=== PATIENT | female | born 2000 | race Hispanic/Latino ===

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

== ENCOUNTER 2022-05-18 12:04 | Emergency (ER) | payer BC, SELFPAY ==
[2022-05-18] MEDS ORDERED: NA CHLORIDE 0.9% 1,000 ML ONE (14:30)
[2022-05-18 14:38] LABS: Urine Blood Negative (Negative); Urine Glucose Negative (Negative); Urine Protein Negative (Negative)
[2022-05-18 14:49] LABS: Absolute Lymphocytes (CBC) 1.9 K/uL (0.7-4.9); Hematocrit 29.6 % (36.0-45.0); Lymphocytes % 25.8 % (15.3-44.8); MCV 76.7 fL (80-100); MPV 9.3 fL (7.6-11.3); RBC Red Blood Cell Count 3.86 M/uL (3.86-4.86)
[2022-05-18 15:15] LABS: Albumin 3.6 g/dL (3.4-5.0); Bilirubin Total 0.6 mg/dL (0.2-1.0); Potassium 3.6 mmol/L (3.5-5.1); Protein, Total 7.4 g/dL (6.4-8.2)
--- NOTE | 2022-05-18 16:28 | RAD REPORT ---
EXAM DESCRIPTION: CT - Abdomen Pelvis W Contrast - 05/18/2022 4:14 pm CLINICAL HISTORY: Abdominal pain COMPARISON: 2016 TECHNIQUE: Computed axial tomography of the abdomen pelvis was obtained. 100 cc Isovue-300 was admin istered intravenously. Oral contrast was not requested which limits evaluation of bowel and appendix All CT scans are performed using dose optimization technique as appropriate and may include automated exposure control or mA/KV adjustment according to patient size. FINDINGS: The liver, spleen, pancreas, adrenal and kidneys appear unremarkable. There is no evidence of diverticulitis. A 2 centimeter right ovarian cyst without significant free fluid Retroverted uterus. IUD in place IMPRESSION: 2 centimeter right ovarian cyst without significant free fluid
--- NOTE | 2022-05-18 16:51 | ER ---
Nurse's Notes [facility] Name: Bertha Wade Age: 22 yrs Sex: Female : 2000 Arrival Date: 05/18/2022 Time: 12:07 Bed 7 Private MD: Diagnosis: UTI/ Urinary tract infection, site not specified;Lower abdominal pain, unspecified;Other ovarian cysts Presentation: 05/18 12:39 Chief complaint: Patient states: ABD pain and lower back pain began yesterday with vg1 diarrhea and nausea, stated "when I feel like i have to pee it feels full but I only pee a little bit" denies burning upon urination or blood in urine. Also stated needs a covid test to return back to work. Coronavirus screen: Vaccine status: Patient reports receiving the 2nd dose of the covid vaccine. Client denies travel out of the [place] in the last 14 days. Ebola Screen: Patient denies exposure to infectious person. Patient denies travel to an Ebola-affected area in the 21 days before illness onset. Initial Sepsis Screen: Does the patient meet any 2 criteria? No. Patient's initial sepsis screen is negative. Does the patient have a suspected source of infection? No. Patient's initial sepsis screen is negative. Risk Assessment: Do you want to hurt yourself or someone else? Patient reports no desire to harm self or others. Onset of symptoms was May 17, 2022. 12:39 Method Of Arrival: Ambulatory vg1 12:39 Acuity: JAKOB 3 vg1 Triage Assessment: 12:41 General: Appears uncomfortable, Behavior is calm, cooperative. Pain: Complains of pain vg1 in back, right lower quadrant and left lower quadrant Pain currently is 5 out of 10 on a pain scale. GI: Abdomen is flat, Reports lower abdominal pain, diarrhea, nausea. 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 - Social history:: Smoking status: Reported history of juuling and/or vaping. Screenin:50 Abuse screen: Denies threats or abuse. Denies injuries from another. Nutritional bp screening: No deficits noted. Tuberculosis screening: No symptoms or risk factors identified. Fall Risk None identified. Assessment: 13:00 General: SEE TRIAGE NOTE. bp 14:51 Reassessment: No changes from previously documented assessment. Patient and/or family bp updated on plan of care and expected duration. Pain level reassessed. CT PENDING. 15:47 Reassessment: No changes from previously documented assessment. Patient and/or family bp updated on plan of care and expected duration. Pain level reassessed. 16:04 Reassessment: PT TO CT. bp Vital Signs: 12:39 BP 114 / 71; Pulse 73; Resp 16; Temp 98.3; Pulse Ox 100% ; Weight 49.9 kg; Height 5 ft. vg1 1 in. (154.94 cm); Pain 5/10; 14:30 BP 111 / 78; Pulse 71; Resp 16; Pulse Ox 100% ; bp 15:22 BP 111 / 71; Pulse 68; Resp 18; Pulse Ox 100% on R/A; ph 16:20 BP 104 / 76; Pulse 72; Resp 18; Pulse Ox 100% on R/A; ph 17:24 BP 110 / 68; Pulse 70; Resp 18; Temp 98.0; Pulse Ox 99% on R/A; ph 12:39 Body Mass Index 20.78 (49.90 kg, 154.94 cm) vg1 ED Course: 12:07 Patient arrived in ED. rg4 12:25 Macho Reyes MD is Attending Physician. kdr 12:41 Triage completed. vg1 12:41 Arm band placed on. vg1 13:56 Karie Voss, SUDHAKAR is Primary Nurse. ph 14:30 Inserted saline lock: 20 gauge in right antecubital area, using aseptic technique. bp Blood collected. 14:50 Patient has correct armband on for positive identification. Bed in low position. Call bp light in reach. Side rails up X2. Adult w/ patient. 16:15 CT Abd/Pelvis - IV Contrast Only In Process Unspecified. EDMS 17:21 No provider procedures requiring assistance completed. IV discontinued, intact, ph bleeding controlled, No redness/swelling at site. Pressure dressing applied. Administered Medications: 14:30 Drug: NS 0.9% 1000 ml Route: IV; Rate: 1 bolus; Site: right antecubital; bp 16:55 Follow up: Response: No adverse reaction; IV Status: Completed infusion; IV Intake: ph 1000ml 17:11 Drug: Bactrim (trimethoprim-sulfamethoxazole) (160 mg-800 mg (DS) 1 tablet Route: PO; ph 17:20 Follow up: Response: No adverse reaction ph Medication: 15:23 VIS not applicable for this client. ph Intake: 16:55 IV: 1000ml; Total: 1000ml. ph Outcome: 16:50 Discharge ordered by . kdr 17:21 Discharged to home ambulatory, with significant other. ph 17:21 Condition: good 17:21 Discharge instructions given to patient, Instructed on discharge instructions, follow up and referral plans. medication usage, Demonstrated understanding of instructions, follow-up care, medications, Prescriptions given X 2. 17:25 Patient left the ED. ph Signatures: Dispatcher [employer] EDMacho St MD MD kdr Hall, Patricia RN RN Janell Hylton 4 Ethan Call RN RN Jordana Hylton RN RN vg1
--- NOTE | 2022-05-18 16:51 | EDPHYS ---
Physician Documentation [facility] Name: Bertha Wade Age: 22 yrs Sex: Female : 2000 Arrival Date: 05/18/2022 Time: 12:07 Bed 7 Private MD: ED Physician Macho Reyes HPI: 05/18 17:36 This 22 yrs old Female presents to ER via Ambulatory with complaints of kdr Abdominal Pain, Low Back Pain. 17:36 Patient states that she started to have mild lower abdominal pain and left flank pain kdr yesterday. It has persisted since then. It is slightly worse but not significantly worse today. She has had similar symptoms before though has been many years. She has some nausea and diarrhea. The patient is nontoxic-appearing and does not require immediate intervention.. Onset: The symptoms/episode began/occurred yesterday. Severity of symptoms: At their worst the symptoms were mild moderate just prior to arrival, in the emergency department the symptoms are unchanged. The patient has not experienced similar symptoms in the past. The patient has not recently seen a physician. Patient states that she is concerned since when she was a child she had a significant urinary tract infection that nearly resulted in her having a nephrectomy. 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 - Social history:: Smoking status: Reported history of juuling and/or vaping. ROS: 17:36 Constitutional: Negative for fever, chills, and weight loss, Eyes: Negative for injury, kdr pain, redness, and discharge, ENT: Negative for injury, pain, and discharge, Neck: Negative for injury, pain, and swelling, Cardiovascular: Negative for chest pain, palpitations, and edema, Respiratory: Negative for shortness of breath, cough, wheezing, and pleuritic chest pain, Back: Negative for injury and pain, : Negative for injury, bleeding, discharge, and swelling, MS/Extremity: Negative for injury and deformity, Skin: Negative for injury, rash, and discoloration, Neuro: Negative for headache, weakness, numbness, tingling, and seizure activity. Psych: Negative for depression, anxiety, suicide ideation, homicidal ideation, and hallucinations, Allergy/Immunology: Negative for hives, rash, and allergies, Endocrine: Negative for neck swelling, polydipsia, polyuria, polyphagia, and marked weight changes, Hematologic/Lymphatic: Negative for swollen nodes, abnormal bleeding, and unusual bruising. 17:36 Abdomen/GI: Positive for abdominal pain, nausea and vomiting, Negative for constipation, abdominal cramps, abdominal distension. Exam: 17:36 Constitutional: This is a well developed, well nourished patient who is awake, alert, kdr and in no acute distress. Head/Face: Normocephalic, atraumatic. Eyes: Pupils equal round and reactive to light, extra-ocular motions intact. Lids and lashes normal. Conjunctiva and sclera are non-icteric and not injected. Cornea within normal limits. Periorbital areas with no swelling, redness, or edema. Neck: Trachea midline, no thyromegaly or masses palpated, and no cervical lymphadenopathy. Supple, full range of motion without nuchal rigidity, or vertebral point tenderness. No Meningismus. Chest/axilla: Normal chest wall appearance and motion. Nontender with no deformity. No lesions are appreciated. Cardiovascular: Regular rate and rhythm with a normal S1 and S2. No gallops, murmurs, or rubs. Normal PMI, no JVD. No pulse deficits. Respiratory: Lungs have equal breath sounds bilaterally, clear to auscultation and percussion. No rales, rhonchi or wheezes noted. No increased work of breathing, no retractions or nasal flaring. Back: No spinal tenderness. No costovertebral tenderness. Full range of motion. Skin: Warm, dry with normal turgor. Normal color with no rashes, no lesions, and no evidence of cellulitis. MS/ Extremity: Pulses equal, no cyanosis. Neurovascular intact. Full, normal range of motion. Neuro: Awake and alert, GCS 15, oriented to person, place, time, and situation. Cranial nerves II-XII grossly intact. Motor strength 5/5 in all extremities. Sensory grossly intact. Cerebellar exam normal. Normal gait. Psych: Awake, alert, with orientation to person, place and time. Behavior, mood, and affect are within normal limits. 17:36 Abdomen/GI: Inspection: abdomen appears normal, obese Bowel sounds: diminished, in all quadrants, Palpation: soft, mild abdominal tenderness, in the suprapubic area, right lower quadrant and left lower quadrant. Vital Signs: 12:39 BP 114 / 71; Pulse 73; Resp 16; Temp 98.3; Pulse Ox 100% ; Weight 49.9 kg; Height 5 ft. vg1 1 in. (154.94 cm); Pain 5/10; 14:30 BP 111 / 78; Pulse 71; Resp 16; Pulse Ox 100% ; bp 15:22 BP 111 / 71; Pulse 68; Resp 18; Pulse Ox 100% on R/A; ph 16:20 BP 104 / 76; Pulse 72; Resp 18; Pulse Ox 100% on R/A; ph 17:24 BP 110 / 68; Pulse 70; Resp 18; Temp 98.0; Pulse Ox 99% on R/A; ph 12:39 Body Mass Index 20.78 (49.90 kg, 154.94 cm) vg1 MDM: 16:50 Patient medically screened. kdr 17:36 Data reviewed: vital signs, nurses notes, lab test result(s), radiologic studies. kdr Counseling: I had a detailed discussion with the patient and/or guardian regarding: the historical points, exam findings, and any diagnostic results supporting the discharge/admit diagnosis, lab results, radiology results, the need for outpatient follow up. 05/18 14:12 Order name: CBC with Diff; Complete Time: 15:45 kdr 05/18 14:12 Order name: CMP; Complete Time: 15:45 kdr 05/18 14:12 Order name: Lipase; Complete Time: 15:45 kdr 05/18 14:39 Order name: Urine Dipstick-Ancillary; Complete Time: 15:45 EDMS 05/18 16:49 Order name: COVID-19 SARS RT PCR (Document "Date of Onset" if Symptomatic) jl7 05/18 14:12 Order name: CT Abd/Pelvis - IV Contrast Only; Complete Time: 16:39 kdr 05/18 14:12 Order name: IV Saline Lock; Complete Time: 14:50 kdr 05/18 14:12 Order name: Labs collected and sent; Complete Time: 14:50 kdr Administered Medications: 14:30 Drug: NS 0.9% 1000 ml Route: IV; Rate: 1 bolus; Site: right antecubital; bp 16:55 Follow up: Response: No adverse reaction; IV Status: Completed infusion; IV Intake: ph 1000ml 17:11 Drug: Bactrim (trimethoprim-sulfamethoxazole) (160 mg-800 mg (DS) 1 tablet Route: PO; ph 17:20 Follow up: Response: No adverse reaction ph Disposition Summary: 05/18/22 16:50 Discharge Ordered Location: Home kdr Problem: new kdr Symptoms: have improved kdr Condition: Stable kdr Diagnosis - UTI/ Urinary tract infection, site not specified kdr - Lower abdominal pain, unspecified kdr - Other ovarian cysts kdr Followup: kdr - With: Private Physician - When: 2 - 3 days - Reason: If symptoms return, Further diagnostic work-up, Recheck today's complaints, Continuance of care, Re-evaluation by your physician Discharge Instructions: - Discharge Summary Sheet kdr - Urinary Tract Infection, Adult, [id number] kdr - Abdominal Pain, Adult, [id number] kdr Forms: - Medication Reconciliation Form kdr - Thank You Letter kdr - Antibiotic Education kdr - Work release form ph Prescriptions: - Ibuprofen 600 mg Oral Tablet - take 1 tablet by ORAL route every 6 hours As needed take with food; 15 tablet; kdr Refills: 0, Product Selection Permitted - Bactrim DS 800-160 mg Oral Tablet - take 1 tablet by ORAL route every 12 hours for 7 days; 14 tablet; Refills: 0, kdr Product Selection Permitted Signatures: Dispatcher [employer] Macho Driver MD MD kdr Karie Voss, RN RN Ethan Call RN RN Jordana Rose, RN RN vg1
[2022-05-18] MEDS ORDERED: SMZ./TMP. 800/160 MG TABLET ONE (17:10)
[2022-05-18 18:11] VITALS: BP 110/68; TEMP 98; O2SAT 99
== END 2022-05-18 17:25 | disposition home or self-care (01) ==
LOC: ER 12:04
DX: N39.0 Urinary tract infection, site not specified (principal); N83.299 Other ovarian cyst, unspecified side; Z91.018 Allergy to other foods
CPT/HCPCS: 36415; 74177; 80053; 81003; 83690; 85025; 96360; 96361; 99284; J7030; Q9967; U0003

== ENCOUNTER 2023-02-05 17:46 | Emergency (ER) | payer SELFPAY ==
--- NOTE | 2023-02-05 18:16 | EDPHYS ---
Physician Documentation [facility] Name: Bertha Wade Age: 22 yrs Sex: Female : 2000 Arrival Date: 02/05/2023 Time: 17:49 Bed IW2 Private MD: ED Physician Luciano Chowdhury HPI: 02/05 18:02 This 22 yrs old Female presents to ER via Ambulatory with complaints of Rash. m 18:45 The patient's rash thought to be caused by an unknown cause. The rash is located on the jmm body diffusely. Onset: The symptoms/episode began/occurred gradually. Associated signs and symptoms: Pertinent positives: itching, Pertinent negatives: burning sensation, difficulty breathing, fever, swelling of lips, swelling of throat, swelling of tongue, vomiting, wheezing. Historical: - Allergies: 18:17 mushrooms; vg1 - Home Meds: 18:17 None [Active]; vg1 - PMHx: 18:17 Anemia; vg1 - PSHx: 18:17 None; vg1 - Immunization history:: Client reports receiving the 2nd dose of the Covid vaccine. - Social history:: Smoking status: Reported history of juuling and/or vaping. ROS: 18:45 Constitutional: Negative for fever, chills, and weight loss, Cardiovascular: Negative jm for chest pain, palpitations, and edema, Respiratory: Negative for shortness of breath, cough, wheezing, and pleuritic chest pain. 18:45 Skin: Positive for rash. 18:45 All other systems are negative. Exam: 18:45 Constitutional: This is a well developed, well nourished patient who is awake, alert, jmm and in no acute distress. Vital Signs: 18:12 BP 110 / 69; Pulse 70; Resp 16; Temp 98.7(O); Pulse Ox 98% on R/A; Weight 54.43 kg; vg1 Height 5 ft. 2 in. ; Pain 0/10; 18:12 Body Mass Index 21.95 (54.43 kg, 157.48 cm) vg1 18:12 Pain Scale: Adult vg1 MDM: 18:02 Patient medically screened. jmm 18:14 Differential diagnosis: allergic reaction, pityriasis. Data reviewed: vital signs, jmm nurses notes. Counseling: I had a detailed discussion with the patient and/or guardian regarding: the historical points, exam findings, and any diagnostic results supporting the discharge/admit diagnosis. Counseling: I had a detailed discussion with the patient and/or guardian regarding: the need for outpatient follow up, to return to the emergency department if symptoms worsen or persist or if there are any questions or concerns that arise at home. Administered Medications: No medications were administered Disposition Summary: 02/05/23 18:15 Discharge Ordered Location: Home [facility] Condition: Stable [facility] Diagnosis - Pityriasis rosea [facility] Followup: [facility] - With: Private Physician - When: 2 - 3 days - Reason: Recheck today's complaints, Continuance of care, Re-evaluation by your physician Discharge Instructions: - Discharge Summary Sheet [facility] - Pityriasis Rosea [facility] Forms: - Medication Reconciliation Form [facility] - Thank You Letter [facility] - Antibiotic Education [facility] - Prescription Opioid Use [facility] Prescriptions: - Hydroxyzine HCl 25 mg Oral Tablet - take 1 tablet by ORAL route every 6 hours As needed; 30 tablet; Refills: 0, [facility] Product Selection Permitted - Prednisone 20 mg Oral Tablet - take 3 tablets by ORAL route once daily for 5 days; 15 tablet; Refills: 0, [facility] Product Selection Permitted Signatures: Cuate Jaffe PA PA jmm Garcia, Victoria, RN RN vg1
--- NOTE | 2023-02-05 18:23 | ER ---
Nurse's Notes [facility] Name: Bertha Wade Age: 22 yrs Sex: Female : 2000 Arrival Date: 02/05/2023 Time: 17:49 Bed IW2 Private MD: Diagnosis: Pityriasis rosea Presentation: 02/05 18:12 Chief complaint: Patient states: hives on back, torso and SURESH arms; Mickail CARITO in vg1 triage assessing pt. Coronavirus screen: Vaccine status: Patient reports receiving the 2nd dose of the covid vaccine. Client denies travel out of the [place] in the last 14 days. Ebola Screen: Patient negative for fever greater than or equal to 101.5 degrees Fahrenheit, and additional compatible Ebola Virus Disease symptoms Patient denies exposure to infectious person. Patient denies travel to an Ebola-affected area in the 21 days before illness onset. Initial Sepsis Screen: Does the patient meet any 2 criteria? No. Patient's initial sepsis screen is negative. Does the patient have a suspected source of infection? No. Patient's initial sepsis screen is negative. Risk Assessment: Do you want to hurt yourself or someone else? Patient reports no desire to harm self or others. Onset of symptoms was February 01, 2023. 18:12 Method Of Arrival: Ambulatory 1 18:12 Acuity: JAKOB 4 vg1 Triage Assessment: 18:17 General: Appears comfortable, Behavior is calm, cooperative. Pain: Denies pain. Derm: vg1 Rash noted that is itchy, red, raised. 18:17 Respiratory: Airway is patent Respiratory effort is even, unlabored. vg1 Historical: - Allergies: 18:17 mushrooms; vg1 - Home Meds: 18:17 None [Active]; vg1 - PMHx: 18:17 Anemia; vg1 - PSHx: 18:17 None; vg1 - Immunization history:: Client reports receiving the 2nd dose of the Covid vaccine. - Social history:: Smoking status: Reported history of juuling and/or vaping. Vital Signs: 18:12 BP 110 / 69; Pulse 70; Resp 16; Temp 98.7(O); Pulse Ox 98% on R/A; Weight 54.43 kg; vg1 Height 5 ft. 2 in. ; Pain 0/10; 18:12 Body Mass Index 21.95 (54.43 kg, 157.48 cm) vg1 18:12 Pain Scale: Adult vg1 ED Course: 17:49 Patient arrived in ED. mr 17:54 Cuate Jaffe PA is PHCP. ankit 17:54 Luciano Chwodhury MD is Attending Physician. jm 18:17 Triage completed. vg1 18:17 Arm band placed on. vg1 18:22 No provider procedures requiring assistance completed. Patient did not have IV access vg1 during this emergency room visit. Administered Medications: No medications were administered Medication: 18:21 VIS not applicable for this client. vg1 Outcome: 18:15 Discharge ordered by . [facility] 18:21 Discharged to home ambulatory. vg1 18:21 Discharge instructions given to patient, Instructed on discharge instructions, follow up and referral plans. medication usage, Demonstrated understanding of instructions, follow-up care, medications, Prescriptions given X 2. 18:22 Patient left the ED. vg1 Signatures: Cuate Jaffe PA PA jmm Rivera, Mary Jordana Hylton, RN RN vg1
[2023-02-05 18:30] VITALS: BP 110/69; TEMP 98.7; O2SAT 98
== END 2023-02-05 18:22 | disposition home or self-care (01) ==
LOC: ER 17:46
DX: L42 Pityriasis rosea (principal)
CPT/HCPCS: 99282

== ENCOUNTER 2023-11-07 04:13 | Observation (INO) | payer SELFPAY ==
[2023-11-07] MEDS ORDERED: ONDANSETRON 4 MG/2 ML VIAL ONE (04:32)
[2023-11-07] MEDS ORDERED: FAMOTIDINE 20 MG/2 ML VIAL IV ONE (04:32)
[2023-11-07] MEDS ORDERED: NA CHLORIDE 0.9% 1,000 ML ONE ×2 (04:33→04:38)
[2023-11-07] MEDS ORDERED: METOCLOPRAMIDE 10 MG/2mL INJ ONE (04:37)
[2023-11-07] MEDS ORDERED: KETOROLAC 30 MG/ML INJ ONE (04:37)
[2023-11-07] MEDS ORDERED: MORPHINE 4 MG/ML SYR ONE (04:38)
[2023-11-07 04:48] LABS: Absolute Lymphocytes (CBC) 2.3 K/uL (0.7-4.9); Hematocrit 27.3 % (36.0-45.0); Lymphocytes % 40.8 % (15.3-44.8); MCV 70.4 fL (80-100); MPV 8.6 fL (7.6-11.3); Platelets 271 thou/uL (152-406); RBC Red Blood Cell Count 3.88 M/uL (3.86-4.86)
[2023-11-07 05:04] LABS: Albumin 3.6 g/dL (3.4-5.0); Bilirubin Total 0.4 mg/dL (0.2-1.0); Potassium 3.4 mEq/L (3.5-5.1); Protein, Total 8.2 g/dL (6.4-8.2)
[2023-11-07 06:47] LABS: Specific Gravity 1.027 (1.005-1.030); Urine Bacteria 20-50 /HPF (<20); Urine Bilirubin NEGATIVE (Negative); Urine Blood Negative (Negative); Urine Clarity Clear (Clear); Urine Color Colorless (Yellow); Urine Glucose NEGATIVE (Negative); Urine Mucus Slight /HPF (None Seen); Urine Protein NEGATIVE (Negative); Urine RBC <5 /HPF (None Seen); Urine Urobilinogen Normal (Normal); Urine pH 5.5 (5.0-7.0)
--- NOTE | 2023-11-07 07:17 | EDPHYS ---
Physician Documentation [facility] Name: Bertha Wade Age: 23 yrs Sex: Female : 2000 Arrival Date: 11/07/2023 Time: 04:13 Bed 18 Private MD: ED Physician Hakan Coreas HPI: 11/07 04:22 This 23 yrs old Female presents to ER via Unassigned with complaints of sp4 Abdominal Pain. 04:53 23-year-old female presents with acute diffuse abdominal pain starting this morning. sp4 Patient reports diffuse abdominal pain moderate to severe in nature. No similar pain in the past. No prior history of any surgery. History of 1 natural delivery in the past .. 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 - Social history:: Smoking status: unknown. - Family history:: not pertinent. ROS: 04:53 Constitutional: Negative for fever, chills, and weight loss, positive diffuse moderate sp4 to severe abdominal pain 04:53 All other systems are negative, Exam: 04:53 Constitutional: This is a well developed, well nourished patient who is awake, alert, sp4 and in no acute distress. Comfortable appearing female Head/Face: Normocephalic, atraumatic. Eyes: Pupils equal round and reactive to light, extra-ocular motions intact. Lids and lashes normal. Conjunctiva and sclera are not injected. Cornea within normal limits. Periorbital areas with no swelling, redness, or edema. ENT: Nares patent. No nasal discharge, no septal abnormalities noted. Tympanic membranes are normal and external auditory canals are clear. Oropharynx with no redness, swelling, or masses, exudates, or evidence of obstruction, uvula midline. Mucous membranes moist. Neck: Trachea midline, no thyromegaly or masses palpated, and no cervical lymphadenopathy. Supple, full range of motion without nuchal rigidity, or vertebral point tenderness. Chest/axilla: Normal chest wall appearance and motion. Nontender with no deformity. No lesions are appreciated. Cardiovascular: Regular rate and rhythm with a normal S1 and S2. No gallops, murmurs, or rubs. Normal PMI, no JVD. No pulse deficits. Respiratory: Lungs have equal breath sounds bilaterally, clear to auscultation and percussion. No rales, rhonchi or wheezes noted. No increased work of breathing, no retractions or nasal flaring. Abdomen/GI: Soft, with normal bowel sounds. No distension or tympany. Noted diffuse tenderness with positive rebound tenderness Back: No spinal tenderness. No costovertebral tenderness. Skin: Warm, dry with normal turgor. Normal color with no rashes, no lesions, and no evidence of cellulitis. MS/ Extremity: Pulses equal, no cyanosis. Neurovascular intact. Full, normal range of motion. Neuro: Awake and alert, GCS 15, oriented to person, place, time, and situation. Cranial nerves II-XII grossly intact. Motor strength 5/5 in all extremities. Sensory grossly intact. Psych: Awake, alert, with orientation to person, place and time. Behavior, mood, and affect are within normal limits Vital Signs: 04:23 BP 94 / 82; Pulse 96; Resp 17 S; Temp 97.9; Pulse Ox 100% on R/A; Weight 49.9 kg; ha1 04:30 BP 100 / 63; Pulse 81; Resp 17 S; Pulse Ox 100% on R/A; ha1 05:30 BP 90 / 47; Pulse 68; Resp 18 S; Pulse Ox 100% on R/A; jw7 06:33 BP 97 / 56; Pulse 68; Resp 17 S; Pulse Ox 100% on R/A; jw7 07:08 BP 100 / 58; Pulse 65; Resp 16; Pulse Ox 99% ; ll1 07:45 BP 103 / 61; Pulse 65; Resp 16; Pulse Ox 99% ; ll1 MDM: 04:30 Patient medically screened. sp4 05:39 ED course: Comparison hemoglobin 05/18/2022 - 9.8. ED course: Globin today is 8.7. sp4 07:08 Differential Diagnosis altered mental status, sepsis, flu. Data reviewed: vital signs, sp4 nurses notes, old medical records, lab test result(s), radiologic studies, CT scan. 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 Abdomen: The liver is normal in appearance. There is no biliary dilatation. Gallbladder is normal in appearance. There is normal in size. IUD is present. The pancreas and spleen are normal in appearance. The adrenal glands and kidneys are unremarkable. Abdominal aorta is normal in course and caliber without aneurysm. There is no free air. There is no retroperitoneal adenopathy. Pelvis: There is no bowel obstruction. Urinary bladder is unremarkable. There is no free fluid. Appendix is poorly seen but no pericecal inflammation. Skeleton: There are no acute osseous findings. No suspicious bony lesions. IMPRESSION: No acute process. . 07:15 Consideration of Admission/Observation Escalation of care including sp4 admission/observation considered. ED course: CT today is unremarkable but we do notice significant gas and stool. Will prescribe Senokot, Bentyl, and also Phenergan. Stable for discharge home, no acute surgical emergency visualized by CAT scan. . 11/07 04:23 Order name: CBC with Diff; Complete Time: 05:37 sp4 11/07 04:23 Order name: CMP; Complete Time: 05:37 sp4 11/07 04:23 Order name: Lipase; Complete Time: 05:37 sp4 11/07 04:23 Order name: Urinalysis w/ reflexes; Complete Time: 07:18 sp4 11/07 04:34 Order name: Test, Serum; Complete Time: 05:40 sp4 11/07 05:39 Order name: Type And Screen sp4 11/07 04:34 Order name: CT Abd/Pelvis - IV Contrast Only sp4 11/07 04:23 Order name: IV Saline Lock; Complete Time: 04:29 sp4 11/07 04:23 Order name: Labs collected and sent; Complete Time: 04:29 sp4 Administered Medications: 04:42 Drug: NS 0.9% IV 1000 ml IV at 1 bolus Per protocol; 1000 mL bolus Route: IV; Rate: 1 ha1 bolus; Site: left antecubital; 07:47 Follow up: IV Status: Completed infusion; IV Intake: 100ml ll1 04:43 Drug: Ondansetron IVP 4 mg IVP once; over 2 minutes Route: IVP; Site: left antecubital; ha1 07:47 Follow up: Response: No adverse reaction ll1 04:45 Drug: metoCLOPramide IVP 10 mg IVP once; over 1 to 2 minutes Route: IVP; Site: left ha1 antecubital; 07:46 Follow up: Response: No adverse reaction ll1 04:48 Drug: Ketorolac IVP 30 mg IVP once Route: IVP; Site: left antecubital; ha1 07:46 Follow up: Response: No adverse reaction; Pain is decreased ll1 04:49 Not Given (Physician Discretion): haloperidol2.5 mg/50 ml 2.5 mg IVP once; Place ha1 patient on a monitor 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 04:49 Drug: NS 0.9% IV 1000 ml IV at 125 ml/hr continuous Route: IV; Rate: 125 ml/hr; Site: jw7 left antecubital; 07:46 Follow up: IV Status: Completed infusion; IV Intake: 1000ml ll1 04:50 Drug: Famotidine IVP 20 mg IVP once; dilute with 10 mL 0.9% NaCl; give over 2 minutes ha1 Route: IVP; Site: left antecubital; 07:47 Follow up: Response: No adverse reaction ll1 04:50 Drug: morphine IVP or IV 4 mg IVP once over 4 mins Route: IVP; Infused Over: 4 mins; ha1 Site: left antecubital; 07:46 Follow up: Response: No adverse reaction; Pain is decreased; RASS: Alert and Calm (0) ll1 Disposition Summary: 11/07/23 07:16 Discharge Ordered Notes: Location: Home sp4 Problem: new sp4 Symptoms: have improved sp4 Condition: Stable sp4 Diagnosis - Abdominal pain, Generalized sp4 - Acute colicky abdominal pain, acute constipation sp4 Followup: sp4 - With: Private Physician - When: 7 - 10 days - Reason: Recheck today's complaints Discharge Instructions: - Discharge Summary Sheet sp4 - Abdominal Pain, Adult sp4 Forms: - Work release form iw - Patient Portal Instructions sp4 Prescriptions: - Senokot-S 8.6-50 mg Oral tablet - take 1 tablet ORAL route daily as needed for constipation; 30 tablet; Refills: sp4 0, Product Selection Permitted - promethazine 25 mg Oral Tablet - take 1 tablet ORAL route every 6 hours As needed; 20 tablet; Refills: 0, sp4 Product Selection Permitted - dicyclomine 20 mg Oral tablet - take 2 tablets ORAL route every 8 hours PRN crampy pain; 30 tablet; Refills: 0, sp4 Product Selection Permitted Signatures: Dispatcher [employer] Maggie Mitchell RN RN jw7 Sarah Bradshaw RN RN ha1 Hakan Coreas MD MD sp4 Moises Hines RN ll1 Corrections: (The following items were deleted from the chart) 05:41 04:24 Test, Urine+[id number].LAB.BRZ ordered. EDMS EDMS
--- NOTE | 2023-11-07 07:17 | ER ---
Nurse's Notes [facility] Name: Bertha Wade Age: 23 yrs Sex: Female : 2000 Arrival Date: 11/07/2023 Time: 04:13 Bed 18 Private MD: Diagnosis: Abdominal pain, Generalized;Acute colicky abdominal pain, acute constipation Presentation: 11/07 04:23 Chief complaint: Patient states: I have a sever abdominal pain that started 40 minutes ha1 ago. Denies nausea and vomiting. Coronavirus screen: Vaccine status:. Ebola Screen: No symptoms or risks identified at this time. Initial Sepsis Screen: Does the patient meet any 2 criteria? No. Patient's initial sepsis screen is negative. Does the patient have a suspected source of infection? No. Patient's initial sepsis screen is negative. Risk Assessment: Do you want to hurt yourself or someone else? Patient reports no desire to harm self or others. Onset of symptoms was November 07, 2023. 04:23 Method Of Arrival: Wheelchair ha1 04:23 Acuity: JAKOB 3 ha1 Triage Assessment: 04:26 General: Appears uncomfortable, Behavior is calm, cooperative. Pain: Complains of pain ha1 in abdomen Pain radiates to back Pain currently is 10 out of 10 on a pain scale. Quality of pain is described as crampy, throbbing, Pain began suddenly. Neuro: Level of Consciousness is awake, alert, obeys commands, Oriented to person, place, time, situation. Cardiovascular: Capillary refill < 3 seconds Patient's skin is warm and dry. Respiratory: Airway is patent Respiratory effort is even, unlabored, Respiratory pattern is regular, symmetrical. GI: Abdomen is flat, non-distended, Bowel sounds present X 4 quads. Reports lower abdominal pain, upper abdominal pain. : No signs and/or symptoms were reported regarding the genitourinary system. Musculoskeletal: Circulation, motion, and sensation intact. 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 - Social history:: Smoking status: unknown. - Family history:: not pertinent. Screenin:28 [facility] ED Fall Risk Assessment (Adult) History of falling in the last 3 months, ha1 including since admission No falls in past 3 months (0 pts) Confusion or Disorientation No (0 pts) Intoxicated or Sedated No (0 pts) Impaired Gait No (0 pts) Mobility Assist Device Used No (0 pt) Altered Elimination No (0 pt) Score/Fall Risk Level 0 - 2 = Low Risk. Abuse screen: Denies threats or abuse. Denies injuries from another. Nutritional screening: No deficits noted. Tuberculosis screening: No symptoms or risk factors identified. Assessment: 04:17 Reassessment: see triage assessment. ha1 05:47 Reassessment: Patient appears in no apparent distress at this time. No changes from [facility] previously documented assessment. Patient and/or family updated on plan of care and expected duration. Pain level reassessed. Patient is alert, oriented x 3, equal unlabored respirations, skin warm/dry/pink. 06:33 Reassessment: Patient appears in no apparent distress at this time. No changes from jw7 previously documented assessment. Patient and/or family updated on plan of care and expected duration. Pain level reassessed. Patient is alert, oriented x 3, equal unlabored respirations, skin warm/dry/pink. 07:00 Reassessment: No changes from previously documented assessment. Report received from ll1 communications instructor RN. 07:09 Reassessment: No changes from previously documented assessment. Patient and/or family ll1 updated on plan of care and expected duration. Pain level reassessed. Patient states feeling better. 07:45 Reassessment: No changes from previously documented assessment. Patient and/or family ll1 updated on plan of care and expected duration. Pain level reassessed. Patient is alert, oriented x 3, equal unlabored respirations, skin warm/dry/pink. Patient states feeling better. Patient states symptoms have improved. Vital Signs: 04:23 BP 94 / 82; Pulse 96; Resp 17 S; Temp 97.9; Pulse Ox 100% on R/A; Weight 49.9 kg; ha1 04:30 BP 100 / 63; Pulse 81; Resp 17 S; Pulse Ox 100% on R/A; ha1 05:30 BP 90 / 47; Pulse 68; Resp 18 S; Pulse Ox 100% on R/A; jw7 06:33 BP 97 / 56; Pulse 68; Resp 17 S; Pulse Ox 100% on R/A; jw7 07:08 BP 100 / 58; Pulse 65; Resp 16; Pulse Ox 99% ; ll1 07:45 BP 103 / 61; Pulse 65; Resp 16; Pulse Ox 99% ; ll1 ED Course: 04:15 Patient arrived in ED. jj6 04:17 Patient has correct armband on for positive identification. Placed in gown. Bed in low ha1 position. Call light in reach. Side rails up X 1. Adult w/ patient. 04:22 Hakan Coreas MD is Attending Physician. sp4 04:25 Inserted saline lock: 22 gauge in left antecubital area, using aseptic technique. Blood ha1 collected. 04:26 Triage completed. ha1 04:29 CBC with Diff Sent. ha1 04:29 CMP Sent. ha1 04:29 Lipase Sent. ha1 04:49 Maggie Fountain RN is Primary Nurse. jw7 04:54 Radiology exam delayed due to test not completed at this time. eh4 05:48 Arm band placed on. jw7 05:59 CT Abd/Pelvis - IV Contrast Only In Process Unspecified. EDMS 07:45 No provider procedures requiring assistance completed. IV discontinued, intact, ll1 bleeding controlled, No redness/swelling at site. Pressure dressing applied. 07:46 Provided Education on: n/a. ll1 Administered Medications: 04:42 Drug: NS 0.9% IV 1000 ml IV at 1 bolus Per protocol; 1000 mL bolus Route: IV; Rate: 1 ha1 bolus; Site: left antecubital; 07:47 Follow up: IV Status: Completed infusion; IV Intake: 100ml ll1 04:43 Drug: Ondansetron IVP 4 mg IVP once; over 2 minutes Route: IVP; Site: left antecubital; ha1 07:47 Follow up: Response: No adverse reaction ll1 04:45 Drug: metoCLOPramide IVP 10 mg IVP once; over 1 to 2 minutes Route: IVP; Site: left ha1 antecubital; 07:46 Follow up: Response: No adverse reaction ll1 04:48 Drug: Ketorolac IVP 30 mg IVP once Route: IVP; Site: left antecubital; ha1 07:46 Follow up: Response: No adverse reaction; Pain is decreased ll1 04:49 Not Given (Physician Discretion): haloperidol2.5 mg/50 ml 2.5 mg IVP once; Place ha1 patient on a library monitor 04:49 Drug: NS 0.9% IV 1000 ml IV at 125 ml/hr continuous Route: IV; Rate: 125 ml/hr; Site: jw7 left antecubital; 07:46 Follow up: IV Status: Completed infusion; IV Intake: 1000ml ll1 04:50 Drug: Famotidine IVP 20 mg IVP once; dilute with 10 mL 0.9% NaCl; give over 2 minutes ha1 Route: IVP; Site: left antecubital; 07:47 Follow up: Response: No adverse reaction ll1 04:50 Drug: morphine IVP or IV 4 mg IVP once over 4 mins Route: IVP; Infused Over: 4 mins; ha1 Site: left antecubital; 07:46 Follow up: Response: No adverse reaction; Pain is decreased; RASS: Alert and Calm (0) ll1 Medication: 07:46 VIS not applicable for this client. ll1 Intake: 07:46 IV: 1000ml; Total: 1000ml. ll1 07:47 IV: 100ml; Total: 1100ml. ll1 Outcome: 07:16 Discharge ordered by . sp4 07:45 Discharged to home ambulatory, ll1 07:45 Condition: stable 07:45 Discharge instructions given to patient, Instructed on discharge instructions, follow up and referral plans. medication usage, Demonstrated understanding of instructions, follow-up care, medications, Prescriptions given X 3, 07:47 Patient left the ED. ll1 Signatures: Dispatcher [employer] EDOH Moises Hines RN RN ll1 Tavia Glass jj6 Maggie Fountain RN RN jw7 Sarah Bradshaw RN RN 1 Shannon Voss 4 Hakan Coreas MD MD sp4 Corrections: (The following items were deleted from the chart) 04:54 04:54 Radiology exam delayed due to lab results not completed at this time. eh4 (BUN/Creatinine) test not completed at this time. eh4
[2023-11-07 08:04] VITALS: TEMP 97.9
[2023-11-07 08:09] VITALS: BP 103/61; O2SAT 99
--- NOTE | 2023-11-07 11:59 | RAD REPORT ---
EXAM DESCRIPTION: CT - Abdomen Pelvis W Contrast - 11/07/2023 7:00 am CLINICAL HISTORY: Abd pain that radiates to the back COMPARISON: None. TECHNIQUE: CT ABDOMEN PELVIS WITH IV CONTRAST on 11/07/2023 4:34 AM INVESTMENT BANKING ANALYST This exam was performed according to our departmental dose-optimization program, which includes autom ated exposure control, adjustment of the mA and/or kV according to patient size and/or use of iterati ve reconstruction technique. FINDINGS: Lower lungs are clear. Abdomen: The liver is normal in appearance. There is no biliary dilatation. Gallbladder is normal in appearance. There is normal in size. IUD is present. The pancreas and spleen are normal in appearance . The adrenal glands and kidneys are unremarkable. Abdominal aorta is normal in course and caliber without aneurysm. There is no free air. There is no r etroperitoneal adenopathy. Pelvis: There is no bowel obstruction. Urinary bladder is unremarkable. There is no free fluid. Appen darryl is poorly seen but no pericecal inflammation. Skeleton: There are no acute osseous findings. No suspicious bony lesions. IMPRESSION: No acute process. Electronically signed by: Catracho Doherty MD 11/07/2023 06:48 AM INVESTMENT BANKING ANALYST Due to temporary technical issues with the PACS/Fluency reporting system, reports are being signed by the in house radiologist without review as a courtesy to ensure prompt reporting. The interpreting r adiologist is fully responsible for the content of the report.
== END 2023-11-07 07:47 | disposition home or self-care (01) ==
LOC: ER 04:13 → ERHOLD 06:46
PROVIDERS: ADMIT Hospitalist; ATTEND Hospitalist
DX: R10.84 Generalized abdominal pain (principal); K59.00 Constipation, unspecified
CPT/HCPCS: 36415; 74177; 80053; 81001; 83690; 84703; 85025; 86850; 86900; 86901; 96361; 96374; 96375; 99284; G0378; J2405; J2765; J7030; Q9967